=== PATIENT | female | born 1975 | race Hispanic/Latino ===

== ENCOUNTER 2018-03-12 22:58 | Emergency (ER) | payer OTHER ==
[2018-03-12] MEDS ORDERED: MOTRIN ONE (23:13)
[2018-03-12 23:28] VITALS: BP 122/74
[2018-03-12] MEDS ORDERED: MOTRIN PO ONE (23:29)
--- NOTE | 2018-03-13 00:53 | XRay Report ---
FINAL REPORT EXAM: XR KNEE 3V LT HISTORY: Left knee pain TECHNIQUE: Four views of the left knee were submitted. FINDINGS: All 3 compartments are well maintained. There is no evidence of fracture or joint effusion. IMPRESSION: Within normal limits.
--- NOTE | 2018-03-13 00:55 | XRay Report ---
FINAL REPORT EXAM: XR ELBOW 2V LT HISTORY: Left elbow pain TECHNIQUE: AP and lateral views of the left elbow were submitted. FINDINGS: There is no evidence of fracture or joint effusion. The radial head appears intact. IMPRESSION: Within normal limits.
--- NOTE | 2018-03-13 00:55 | XRay Report ---
FINAL REPORT EXAM: XR FOREARM LT HISTORY: left forearm pain TECHNIQUE: AP and lateral views of the left forearm were submitted. FINDINGS: There is no evidence of acute displaced fracture or soft tissue injury. The elbow and wrist joints do not show any acute changes. IMPRESSION: No acute process identified.
--- NOTE | 2018-03-13 00:56 | XRay Report ---
FINAL REPORT EXAM: XR TIBIA FIBULA 2V LT HISTORY: Left estrada pain TECHNIQUE: Four views of the left tibia-fibula were submitted. FINDINGS: There is pretibial soft tissue fullness along upper estrada. No definite acute fracture seen. The ankle knee joints not show any acute changes. IMPRESSION: Pretibial soft tissue fullness proximally calf. No evidence of acute fracture.
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
== END 2018-03-13 02:41 | disposition home or self-care (01) ==
LOC: ED 22:58
DX: M25.522 Pain in left elbow (principal); M25.562 Pain in left knee; F17.200 Nicotine dependence, unspecified, uncomplicated; Z90.49 Acquired absence of other specified parts of digestive tract; V89.2XXA Person injured in unspecified motor-vehicle accident, traffic, initial encounter; Y93.89 Activity, other specified; Y92.488 Other paved roadways as the place of occurrence of the external cause; Y99.8 Other external cause status
CPT/HCPCS: 70450; 99284